=== PATIENT | male | born 1960 | race Caucasian/White ===

== ENCOUNTER 2017-06-29 15:46 | Inpatient (IN) | payer BC ==
[2017-06-29 17:41] LABS: #Basophils 0.1 thou/uL (0.0-0.2); #Eosinphils 0.1 thou/uL (0.0-0.7); #Lymphocytes 2.9 thou/uL (1.20-3.40); #Monocytes 0.7 thou/uL (0.11-0.59); %Basophils 0.7 % (0.0-1.0); %Eosinophils 0.8 % (0.0-10.0); %Lymphocytes 22.8 % (21.0-51.0); %Monocytes 5.4 % (0.0-10.0); %Neutrophils 70.3 % (42.0-75.0); Mean Corpuscular Hemoglobin 31.5 pg (27.0-31.0); Mean Corpuscular Volume 89.9 fl (80.0-94.0); Mean Platelet Volume 7.8 fL (7.4-10.4); Platelet Count 209 thou/uL (130-400); RBC Distribution Width 11.8 % (11.5-14.5); Red Blood Cell (RBC) Count 5.07 mill/uL (4.70-6.10); White Blood Cell (WBC) Count 12.8 thou/uL (4.8-10.8)
[2017-06-29 17:58] LABS: ALT (SGPT) 24 U/L (8-55); AST (SGOT) 26 U/L (5-34); Albumin 4.2 g/dL (3.5-5.0); Alkaline Phosphatase 86 U/L (40-150); Anion Gap 15 mmol/L (10-20); BUN (Urea Nitrogen) 11 mg/dL (8.4-25.7); Bilirubin, Total 1.3 mg/dL (0.2-1.2); Calc. Creatinine Clearance 0 mL/min (70-130); Calcium 9.5 mg/dL (7.8-10.44); Carbon Dioxide 21 mmol/L (22-29); Chloride 99 mmol/L (98-107); Estimated GFR-MDRD 89; Globulin 3.4 g/dL (2.4-3.5); Glucose 247 mg/dL (70-105); Protein, Total 7.6 g/dL (6.0-8.3); Sodium 131 mmol/L (136-145); Troponin I Less than 0.010 ng/mL (< 0.028)
--- NOTE | 2017-06-29 18:22 | HP ---
DATE OF CONSULTATION: 06/29/2017 CHIEF COMPLAINT: Slurred speech and weakness of the left arm. HISTORY OF PRESENT ILLNESS: This is a 56-year-old morbidly obese white male with a known history of type 2 diabetes mellitus and hypertension but is not on medications for the past 2-3 years since his primary care physician 3 years ago. He initially lost his insurance and then for that reason he did not go back to seek another doctor, but he got his job 2 years ago, but he did not bother to see k medical attention. Since yesterday, he was feeling weak when he went to the work and he came back home, was weak and not feeling well and he slept early, and he woke up in the morning and was trying to go to work, was not feeling well and noticed that his left arm was weak and he was unable to write things legibly. His also noticed that when he tried to put his wallet in the draw, it just fel l off the table and he could not reach the table. He had worsening slurred speech started this [facility]. He went to [facility] from where he had a CT of the head this morning, which was showing a sub acute infarct on the right MCA, so the patient was transferred here without giving any aspirin and th e patient was seen here at around 5:30 p.m. He had persistent symptoms slightly improving, but he ho d persistent slurred speech and the persistent weakness of the left upper arm. The patient also ment ioned that he had ataxic gait and he was unable to walk in a straight line and was actually leaning t o the left while walking, brushing his shoulder to the door. He denies having any chest pain, no miles sea, no vomiting, no diarrhea, no constipation. He does have some low vision on his right eye, but danny garcia says it is not new and has been there for a couple of months. He never went to a doctor get it james cked out. PAST MEDICAL HISTORY: 1. Type 2 diabetes mellitus. 2. Hypertension. 3. Hyperlipidemia. PAST SURGICAL HISTORY: The patient had an abdominal surgery in the past for diverticular abscess and part of the intestine was removed according to him. SOCIAL HISTORY: The patient is a not a known smoker. No history of alcohol. No history of illicit drug use. 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 FAMILY HISTORY: The patient has significant family history of coronary artery disease. His mother d ied with a massive heart attack at age of 70. Father had esophageal cancer, who was exposed to asbes tos. ALLERGIES: No known drug allergies. HOME MEDICATIONS: The patient is not on any home medications. REVIEW OF SYSTEMS: All 12 systems are reviewed with the patient thoroughly and found to be negative at this time. Systems reviewed HEENT, CVS, respiratory, GI, , musculoskeletal, and HEAVY LINE TECHNICIAN. All syste ms are reviewed and found to be negative as described in the HPI. Constitutional: Weight loss or gain, sense of well-being, ability to conduct usual activities, exerc ise tolerance. Skin/Breast: Rash, itching, changes in hair growth or loss, nail changes, breast lumps, tenderness, swelling, nipple discharge. Eyes: Vision, double vision, tearing, blind spots, pain. ENT/Mouth: Headaches (location, time of onset, duration, precipitating factors), vertigo, lightheadedness, injury. Vision, double vision, tearing, blind spots, pain, nose b leeding, colds, obstruction, discharge, dental difficulties, gingival bleeding, dentures, neck stiffn ess, pain, tenderness, masses in thyroid or other areas Cardiovascular: Precordial pain, substernal distress, palpitations, syncope, dyspnea on exertion, or thopnea, nocturnal paroxysmal dyspnea, edema, cyanosis, hypertension, heart murmurs, varicosities, ph lebitis, claudication. Respiratory: Pain, shortness of breath, wheezing, stridor, cough, hemoptysis, fever or night sweats Gastrointestinal: Poor appetite, dysphagia, indigestion, abdominal pain, heartburn, eructation, naus ea, vomiting, hematemesis, jaundice, constipation, or diarrhea, abnormal stools (emily-colored, tarry, bloody, greasy, foul smelling), flatulence, hemorrhoids, recent changes in bowel habits. Genitourinary: Urgency, frequency, dysuria, nocturia, hematuria, polyuria, oliguria, unusual (or lenin nge in) color of urine, stones, hesitancy, change in size of stream, dribbling, acute retention or in continence, libido, potency. Musculoskeletal: Pain, swelling, redness or heat of muscles or joints, limitation, of motion, muscular weakness, atrophy, cramps. Neurologic/Psychiatric: Convulsions, paralyses, tremor, incoordination, parasthesias, difficulties w ith memory of speech, sensory or motor disturbances, or muscular coordination (ataxia, tremor), emoti onal problems, anxiety, depression, previous psychiatric care, unusual perceptions, hallucinations. Allergy/Immunologic: Skin rash, anemia, bleeding tendency, polydipsia, polyuria, intolerance to heat or cold. PHYSICAL EXAMINATION: VITAL SIGNS: Blood pressures are 135/97, heart rate is 88, respiration is 18, saturation is 98%. GENERAL: The patient is morbidly obese. He is alert and oriented, does not appear to be in acute di stress. HEENT: Atraumatic, normocephalic. PERRLA. Extraocular movements were intact. Oral mucosa is pink and moist. CARDIOVASCULAR: S1, S2 normal. No murmurs, rubs or gallops. LUNGS: Bilateral air entry was equal. No wheezing, no crackles. ABDOMEN: Soft and nontender. No guarding. No rebound tenderness. Bowel sounds normal. MUSCULOSKELETAL: No calf tenderness. No pedal edema. No joint tenderness. No joint swelling. NEUROLOGIC: Cranial nerve examination was done. The patient has a left upper motor neuron symptoms with left-sided palsy and has a significant weakness on his left upper extremity compared to the righ t upper extremity. 3/5 on the left side compared to the right side. The patient has equal strength in both the lower extremities. Sensory is normal in all over the body. The patient has a normal gag reflex and there is no tongue deviation was noted. LABORATORY DATA: 1. WBC is 12.8, hemoglobin is 16.0, hematocrit is 45.0. 2. CMP was ordered but is pending at this time. 3. CT of the head was done at [facility], which was showing evidence of a right-sided MCA, which more likely more of a subacute type. ASSESSMENT AND PLAN: 1. Acute right-sided middle cerebral artery. 2. Type 2 diabetes mellitus, not on medications. 3. Hypertension. 4. Hyperlipidemia. PLAN: 1. Plan is to admit this patient and closely monitor this patient with neuro checks every 4 hours. We will keep the patient n.p.o. and do a swallow study in the morning with speech. 2. We will do an evaluation of stroke with MRI of the brain and will do a bilateral carotid ultrasou nd and 2D echo to look for any evidence of thromboembolism. We will consult Neurology in the morning . 3. To cover the core measures. The patient has reached ER more than 3 hours after the first symptom s of the stroke. So, hence TPA was not given. The patient was started on aspirin as soon as he reac hed this ER and we will check the lipid profile in the morning. The patient is also started on atorv astatin 40 mg p.o. daily. 4. We will do a permissive hypertension. We will allow elevated blood pressures and treat blood pre ssure with more than 180. 5. Type 2 diabetes mellitus. We will check for the hemoglobin A1c to look for blood sugar control a nd we will start the patient on sliding scale insulin at this time and long-acting Levemir based on h is blood sugars. 6. Chronic DVT prophylaxis with Lovenox. I spent 70 minutes of this patient.
[2017-06-29 18:37] LABS: Hemoglobin A1c 9.6 % (4.0-6.0)
[2017-06-29] MEDS ORDERED: Acetaminophen 325 MG TAB ONE (21:50)
[2017-06-29] MEDS ORDERED: Ondansetron HCl/PF 4 MG/2 ML Vial IVP PRN ×2 (22:17→22:51)
[2017-06-29] MEDS ORDERED: Ondansetron ODT 4 MG TAB SL PRN (22:17)
[2017-06-29] MEDS ORDERED: Acetaminophen 325 MG TAB PO PRN (22:17)
[2017-06-29 22:36] VITALS: BMI 41.3
[2017-06-29] MEDS ORDERED: HYDROcodone/Acetaminophen 5/325 mg Tablet PO PRN (22:51)
[2017-06-29] MEDS ORDERED: hydrALAZINE 20 MG/ML VIAL SLOW IVP PRN (22:51)
[2017-06-29] MEDS ORDERED: Ondansetron ODT 4 MG TAB PO PRN (22:51)
[2017-06-29 23:37] LABS: Troponin I 0.015 ng/mL (< 0.028)
--- NOTE | 2017-06-29 23:55 | ULT ---
CAROTID ARTERIAL DOPPLER ULTRASOUND 06/29/17 COMPARISON: None. HISTORY: Left sided weakness, dizziness. TECHNIQUE: Multiplanar albrecht scale sonographic imaging of the arterial structures of the neck obtained with color flow and spectral analysis. FINDINGS: Antegrade blood flow and normal arterial waveforms are documented within the carotid and vertebral sy stem bilaterally. VESSELS PSV (cm/s) EDV (cm/s) Right CCA 75 18 Right ICA 41 14 Right ECA 62 11 Left CCA 107 26 Left ICA 56 22 Left ECA 78 18 ICA/CCA ratio is 0.6 on the right and 0.5 on the left. IMPRESSION: No hemodynamically significant stenosis on the basis of sonographic velocity criteria. POS: CRISTAL
[2017-06-30 05:04] LABS: #Basophils 0.1 thou/uL (0.0-0.2); #Eosinphils 0.2 thou/uL (0.0-0.7); #Lymphocytes 3.3 thou/uL (1.20-3.40); #Monocytes 0.9 thou/uL (0.11-0.59); #Neutrophils 7.3 thou/uL (1.40-6.50); %Basophils 0.6 % (0.0-1.0); %Eosinophils 1.9 % (0.0-10.0); %Lymphocytes 28.1 % (21.0-51.0); %Monocytes 7.8 % (0.0-10.0); %Neutrophils 61.7 % (42.0-75.0); Hemoglobin 15.3 g/dL (14.0-18.0); Mean Corpuscular Hemoglobin 31.3 pg (27.0-31.0); Mean Corpuscular Volume 89.7 fl (80.0-94.0); Mean Platelet Volume 7.9 fL (7.4-10.4); Platelet Count 205 thou/uL (130-400); RBC Distribution Width 11.7 % (11.5-14.5); White Blood Cell (WBC) Count 11.8 thou/uL (4.8-10.8)
[2017-06-30 05:16] LABS: Anion Gap 13 mmol/L (10-20); BUN (Urea Nitrogen) 13 mg/dL (8.4-25.7); Calc. Creatinine Clearance 151 mL/min (70-130); Calcium 9.5 mg/dL (7.8-10.44); Carbon Dioxide 26 mmol/L (22-29); Cardiac Risk 5.5 (Less than 4.5); Chloride 98 mmol/L (98-107); Cholesterol 236 mg/dl (< 200 Desired); Estimated GFR-MDRD Greater than 90; Glucose 242 mg/dL (70-105); HDL Cholesterol 43 mg/dL (>60 Neg Risk); LDL Cholesterol, Calculated 155 mg/dL; Potassium 3.9 mmol/L (3.5-5.1); Sodium 133 mmol/L (136-145); Triglycerides 188 mg/dL (Less than 150)
[2017-06-30] MEDS: Enoxaparin Sodium 40 MG/0.4 ML SYRINGE SC SCH (08:33)
[2017-06-30] MEDS: Famotidine/PF 20 mg/2ml Vial SLOW IVP SCH ×2 (08:33→20:31)
[2017-06-30] MEDS ORDERED: FLU VACC QS2017-18 36 mo. & older 0.5 ML SYRINGE IM ONE (09:00)
[2017-06-30] MEDS ORDERED: Dextrose 5% in Water 1,000 ML IV PRN (09:07)
[2017-06-30] MEDS ORDERED: Dextrose 50% Abboject 50 ML SYRINGE SLOW IVP PRN (09:07)
[2017-06-30] MEDS: Aspirin 81 mg Enteric Coated Tablet PO SCH (10:17)
[2017-06-30] MEDS: HumaLOG 300 UNITS/3 ML VIAL SC PRN ×2 (11:31→17:12)
--- NOTE | 2017-06-30 13:08 | MRI ---
BRAIN MRI WITHOUT CONTRAST: Date: 06/30/17 HISTORY: Left-sided weakness, starting yesterday. COMPARISON: None. TECHNIQUE: Brain MRI is performed without intravenous Gadolinium administration. Multisequential, multiplanar im aging is performed. FINDINGS: No hemorrhage on the axial gradient echo sequence. Calvarium has a normal T1 marrow signal intensity. Midline brain parenchymal structures are unremarka ble. Brain volume is less than expected for patient's age. Cortical albrecht-white matter differentiation is p reserved. No evidence of hydrocephalus. There is T2 and FLAIR white matter hyperintensity involving the right cerebral white matter tract. Th ere is associated restricted diffusion, compatible with an acute infarction. No additional areas of i nfarction are appreciated. Adequate aeration of the sinuses and mastoid air cells. IMPRESSION: Right cerebral white matter infarct, involving the corpus striatum. Correlate with patient's symptoms . POS: OFF
[2017-06-30] MEDS: metFORMIN 500 MG TAB PO SCH (17:16)
--- NOTE | 2017-06-30 18:04 | CON ---
DATE OF CONSULTATION: 06/30/2017 REFERRING PHYSICIAN: Hospitalist service IMPRESSION: 1. Right deep hemispheric stroke with resultant left mild paresis. 2. Hypertension. 3. Diabetes. 4. Hyperlipidemia. PLAN: 1. Aspirin 81 mg per day. 2. Titrate a statin to address his hyperlipidemia. 3. Echocardiogram. 4. Outpatient physical therapy program. HISTORY OF PRESENT ILLNESS: Mr. Elise is a 56-year-old man with the above noted medical problems. Franky garcia presented with left-sided weakness 2 days ago. He has never had anything like this in the past christine t had not affected his speech or swallowing. Denied any headache, nausea, vomiting, vertigo, double vision, or blurred vision associated with it. His MRI of the brain reveals an area of acute infarcti on in the external capsule and right central periventricular region as carotid Doppler did not show a ny stenosis. Echocardiogram is pending. His lab work showed a lipid panel with a poor ratio of 5.2. His symptoms have improved somewhat since onset. PAST MEDICAL HISTORY: Hypertension, diabetes. FAMILY HISTORY: Noncontributory. SOCIAL HISTORY: No tobacco or alcohol use. ALLERGIES: None reported. REVIEW OF SYSTEMS: Otherwise negative. PHYSICAL EXAMINATION: VITAL SIGNS: Stable. He is afebrile. HEENT: Pupils are equal and reactive. Conjunctivae clear. Oropharynx is clear. NECK: Supple. EXTREMITIES: No cyanosis, clubbing, or edema. NEUROLOGIC: He is alert and cooperative. Speech is fluent and clear. Cranial nerves showed a subtl e left nasolabial fold flattening. Motor exam showed antigravity strength in the left arm and leg wi th diminished fine motor control in the left hand. Sensation was intact to light touch. Reflexes sh owed an upgoing toe on the left. He can walk reasonably independently. EKG showed normal sinus rhythm. SUMMARY: This is a middle-aged man with risk factors for small vessel disease. He is suffering an a cute stroke. He was not on aspirin or statin prior to the event. Agree with your treatment.
[2017-06-30] MEDS: Atorvastatin Calcium 40 MG TAB PO SCH (20:31)
[2017-07-01] MEDS: metFORMIN 500 MG TAB PO SCH ×2 (09:00→16:13)
[2017-07-01] MEDS: Insulin Detemir 100 UNITS/ML 20 UNITS in Admixture Fee 1 EACH SC SCH (09:00)
[2017-07-01] MEDS: Aspirin 81 mg Enteric Coated Tablet PO SCH (09:00)
[2017-07-01] MEDS: Famotidine/PF 20 mg/2ml Vial SLOW IVP SCH ×2 (09:00→22:03)
[2017-07-01] MEDS: Enoxaparin Sodium 40 MG/0.4 ML SYRINGE SC SCH (09:00)
[2017-07-01] MEDS: HumaLOG 300 UNITS/3 ML VIAL SC PRN ×2 (12:01→16:53)
--- NOTE | 2017-07-01 14:20 | PDOC.PN ---
- Subjective Encounter Start Date: 06/30/17 Encounter Start Time: 13:00 Patient is seen today, alert and oriented. Discussed with , pt has soime improvemnt in his speech, has persitant gait deficits. - Objective Resuscitation Status: Resuscitation Status FULL:Full Resuscitation MAR Reviewed: Yes Vital Signs & Weight: Vital Signs (12 hours) Temp Pulse Pulse Pulse Resp BP BP 07/01/17 11:53 98.1 F 80 20 07/01/17 09:30 84 76 165/86 H 165/86 H 07/01/17 07:53 97.5 F L 94 20 07/01/17 07:40 98.0 F 80 18 07/01/17 04:00 98.0 F 80 18 BP Pulse Ox 07/01/17 11:53 128/79 96 07/01/17 09:30 07/01/17 07:53 166/90 H 98 07/01/17 07:40 98 07/01/17 04:00 157/85 H 98 Weight Weight 248 lb 1 oz I&O: 06/30/17 07/01/17 07/02/17 06:59 06:59 06:59 Intake Total 600 Balance 600 Result Diagrams: 06/30/17 04:26 06/30/17 04:26 Additional Labs: Accuchecks 07/01/17 07/01/17 06/30/17 11:04 06:07 20:25 POC Glucose 210 H 215 H 217 H 06/30/17 16:56 POC Glucose 197 H Phys Exam - Physical Examination HEENT: PERRLA, moist MMs Neck: no nodes, no JVD Respiratory: no wheezing, no rales Cardiovascular: RRR, no significant murmur Gastrointestinal: soft, non-tender Musculoskeletal: no edema, pulses present Neurological: non-focal, normal sensation Dx/Plan (1) Acute right arterial ischemic stroke, middle cerebral artery (MCA) Code(s): I63.511 - CEREB INFRC D/T UNSP OCCLS OR STENOS OF RIGHT MID CEREB ART Status: Acute Comment: Patient is seen by Neuirology continue with Aspirin, STatin, Will evalaute for Rehab. (2) Hyperglycemia due to type 2 diabetes mellitus Code(s): E11.65 - TYPE 2 DIABETES MELLITUS WITH HYPERGLYCEMIA Status: Acute Comment: PT is non compliant, responding well to levmir, will do Metformin as outpairtent. (3) Hypertension Code(s): I10 - ESSENTIAL (PRIMARY) HYPERTENSION Status: Acute Comment: PT will be clsoley monitored for permissive HTN. (4) Hyperlipidemia Code(s): E78.5 - HYPERLIPIDEMIA, UNSPECIFIED Status: Acute Comment: continue on Atorvastatin goal LDL<100 - Plan cont current plan of care, plan discussed w/ family, PT/OT, addiction social worker, speech therapy, DVT proph w/lovenox * . - Discharge Day Encounter end time: 13:35 Review of Systems - Review of Systems Constitutional: fever, chills Eyes: Pain, Vision Change Respiratory: Cough, Dry, Shortness of Breath Cardiovascular: palpitations, edema, light headedness Gastrointestinal: Nausea, Vomiting, Abdominal Pain Musculoskeletal: Neck Pain, Shoulder Pain Skin: Rash, Lesions Neurological: Weakness, Numbness - Medications/Allergies Allergies/Adverse Reactions: Allergies Allergy/AdvReac Type Severity Reaction Status Date / Time No Known Drug Allergies Allergy Verified 07/01/17 02:49 Medications: Current Medications Acetaminophen (Tylenol) 650 mg PO Q4H PRN PRN Reason: Headache/Fever or Pain Hydrocodone Bitart/Acetaminophen ([place] 5/325) 1 tab PO Q4H PRN PRN Reason: Moderate Pain (4-6) Aspirin (Ecotrin) 81 mg PO DAILY [facility] Last Admin: 07/01/17 09:00 Dose: 81 mg Atorvastatin Calcium (Lipitor) 40 mg PO HS [facility] Last Admin: 06/30/17 20:31 Dose: 40 mg Dextrose/Water (Dextrose 50%) 25 gm SLOW IVP PRN PRN PRN Reason: Hypoglycemia Enoxaparin Sodium (Lovenox) 40 mg SC 0900 [facility] Last Admin: 07/01/17 09:00 Dose: 40 mg Famotidine (Pepcid) 20 mg SLOW IVP Q12HR [facility] Last Admin: 07/01/17 09:00 Dose: 20 mg Glucagon (Glucagon) 1 mg IM PRN PRN PRN Reason: Hypoglycemia Hydralazine HCl (Apresoline) 10 mg SLOW IVP Q4H PRN PRN Reason: BP > 220/110 Dextrose/Water (D5w) 1,000 mls @ 0 mls/hr IV .Q0M PRN; As Directed PRN Reason: Hypoglycemia Insulin Detemir 20 units/ (Miscellaneous Medication) 0.2 mls @ 0 mls/hr SC QAM [facility] Last Admin: 07/01/17 09:00 Dose: 0.2 mls Insulin Human Lispro (Humalog) 0 units SC .MODERATE SLIDING SC PRN PRN Reason: Moderate Correctional Scale Last Admin: 07/01/17 12:01 Dose: 4 unit Metformin HCl (Glucophage) 500 mg PO BID-[facility] Last Admin: 07/01/17 09:00 Dose: 500 mg Ondansetron HCl (Zofran Odt) 4 mg PO Q6H PRN PRN Reason: Nausea/Vomiting Ondansetron HCl (Zofran) 4 mg IVP Q6H PRN PRN Reason: Nausea/Vomiting Sodium Chloride (Flush - Normal Saline) 10 ml IVF Q12HR [facility] Last Admin: 07/01/17 09:07 Dose: 10 ml Sodium Chloride (Flush - Normal Saline) 10 ml IVF PRN PRN PRN Reason: Saline Flush
--- NOTE | 2017-07-01 15:24 | PDOC.PN ---
- Subjective Encounter Start Date: 07/01/17 Encounter Start Time: 14:30 Patient is seen today, alert and oriented, He continuos to have Weakness of his left upper ARM AND Lower extremity. - Objective Resuscitation Status: Resuscitation Status FULL:Full Resuscitation MAR Reviewed: Yes Vital Signs & Weight: Vital Signs (12 hours) Temp Pulse Pulse Pulse Resp BP BP 07/01/17 11:53 98.1 F 80 20 07/01/17 09:30 84 76 165/86 H 165/86 H 07/01/17 07:53 97.5 F L 94 20 07/01/17 07:40 98.0 F 80 18 07/01/17 04:00 98.0 F 80 18 BP Pulse Ox 07/01/17 11:53 128/79 96 07/01/17 09:30 07/01/17 07:53 166/90 H 98 07/01/17 07:40 98 07/01/17 04:00 157/85 H 98 Weight Weight 248 lb 1 oz I&O: 06/30/17 07/01/17 07/02/17 06:59 06:59 06:59 Intake Total 600 Balance 600 Result Diagrams: 06/30/17 04:26 06/30/17 04:26 Additional Labs: Accuchecks 07/01/17 07/01/17 06/30/17 11:04 06:07 20:25 POC Glucose 210 H 215 H 217 H 06/30/17 16:56 POC Glucose 197 H Phys Exam - Physical Examination HEENT: PERRLA, moist MMs Neck: no nodes, no JVD Respiratory: no wheezing, no rales Cardiovascular: RRR, no significant murmur Gastrointestinal: soft, non-tender Musculoskeletal: no edema, pulses present Neurological: non-focal, normal sensation Lymphatic: no nodes Psychiatric: normal affect, A&O x 3 Skin: no rash, normal turgor Dx/Plan (1) Acute right arterial ischemic stroke, middle cerebral artery (MCA) Code(s): I63.511 - CEREB INFRC D/T UNSP OCCLS OR STENOS OF RIGHT MID CEREB ART Status: Acute Comment: Patient is seen by Neuirology continue with Aspirin, STatin, Will evalaute for inpatient Rehab. (2) Hyperglycemia due to type 2 diabetes mellitus Code(s): E11.65 - TYPE 2 DIABETES MELLITUS WITH HYPERGLYCEMIA Status: Acute Comment: PT is non compliant, responding well to levmir, will do Metformin as outpairtent. (3) Hypertension Code(s): I10 - ESSENTIAL (PRIMARY) HYPERTENSION Status: Acute Comment: PT will be clsoley monitored for permissive HTN. (4) Hyperlipidemia Code(s): E78.5 - HYPERLIPIDEMIA, UNSPECIFIED Status: Acute Comment: continue on Atorvastatin goal LDL<100 - Plan cont current plan of care, plan discussed w/ family, PT/OT, social staff worker, speech therapy, DVT proph w/lovenox, DVT proph w/SCDs * . - Discharge Day Encounter end time: 15:15 Review of Systems - Review of Systems Constitutional: negative: sweats, weakness, malaise, other Eyes: negative: Pain, Vision Change, Conjunctivae Inflammation, Eyelid Inflammation, Redness, Other ENT: negative: Ear Pain, Ear Discharge, Nose Pain, Nose Discharge, Nose Congestion, Mouth Pain, Mouth Swelling, Throat Pain, Throat Swelling, Other Respiratory: negative: Cough, Dry, Shortness of Breath, Hemoptysis, SOB with Excertion, Pleuritic Pain, Sputum, Wheezing Cardiovascular: negative: chest pain, palpitations, orthopnea, paroxysmal nocturnal dyspnea, edema, light headedness, other Gastrointestinal: negative: Nausea, Vomiting, Abdominal Pain, Diarrhea, Constipation, Melena, Hematochezia, Other Genitourinary: negative: Dysuria, Frequency, Incontinence, Hematuria, Retention , Other Musculoskeletal: negative: Neck Pain, Shoulder Pain, Arm Pain, Back Pain, Hand Pain, Leg Pain, Foot Pain, Other Skin: negative: Rash, Lesions, Haris, Bruising, Other Neurological: Weakness, Incoordination, Change in Speech - Medications/Allergies Allergies/Adverse Reactions: Allergies Allergy/AdvReac Type Severity Reaction Status Date / Time No Known Drug Allergies Allergy Verified 07/01/17 02:49 Medications: Current Medications Acetaminophen (Tylenol) 650 mg PO Q4H PRN PRN Reason: Headache/Fever or Pain Hydrocodone Bitart/Acetaminophen ([place] 5/325) 1 tab PO Q4H PRN PRN Reason: Moderate Pain (4-6) Aspirin (Ecotrin) 81 mg PO DAILY [facility] Last Admin: 07/01/17 09:00 Dose: 81 mg Atorvastatin Calcium (Lipitor) 40 mg PO HS [facility] Last Admin: 06/30/17 20:31 Dose: 40 mg Dextrose/Water (Dextrose 50%) 25 gm SLOW IVP PRN PRN PRN Reason: Hypoglycemia Enoxaparin Sodium (Lovenox) 40 mg SC 0900 [facility] Last Admin: 07/01/17 09:00 Dose: 40 mg Famotidine (Pepcid) 20 mg SLOW IVP Q12HR [facility] Last Admin: 07/01/17 09:00 Dose: 20 mg Glucagon (Glucagon) 1 mg IM PRN PRN PRN Reason: Hypoglycemia Hydralazine HCl (Apresoline) 10 mg SLOW IVP Q4H PRN PRN Reason: BP > 220/110 Dextrose/Water (D5w) 1,000 mls @ 0 mls/hr IV .Q0M PRN; As Directed PRN Reason: Hypoglycemia Insulin Detemir 20 units/ (Miscellaneous Medication) 0.2 mls @ 0 mls/hr SC QAM [facility] Last Admin: 07/01/17 09:00 Dose: 0.2 mls Insulin Human Lispro (Humalog) 0 units SC .MODERATE SLIDING SC PRN PRN Reason: Moderate Correctional Scale Last Admin: 07/01/17 12:01 Dose: 4 unit Metformin HCl (Glucophage) 500 mg PO BID-[facility] Last Admin: 07/01/17 09:00 Dose: 500 mg Ondansetron HCl (Zofran Odt) 4 mg PO Q6H PRN PRN Reason: Nausea/Vomiting Ondansetron HCl (Zofran) 4 mg IVP Q6H PRN PRN Reason: Nausea/Vomiting Sodium Chloride (Flush - Normal Saline) 10 ml IVF Q12HR [facility] Last Admin: 07/01/17 09:07 Dose: 10 ml Sodium Chloride (Flush - Normal Saline) 10 ml IVF PRN PRN PRN Reason: Saline Flush
[2017-07-01] MEDS: Atorvastatin Calcium 40 MG TAB PO SCH (21:58)
[2017-07-02] MEDS: HumaLOG 300 UNITS/3 ML VIAL SC PRN ×3 (07:23→17:31)
[2017-07-02] MEDS: Insulin Detemir 100 UNITS/ML 20 UNITS in Admixture Fee 1 EACH SC SCH (09:51)
[2017-07-02] MEDS: Famotidine/PF 20 mg/2ml Vial SLOW IVP SCH ×2 (09:52→22:00)
[2017-07-02] MEDS: metFORMIN 500 MG TAB PO SCH ×2 (09:52→17:31)
[2017-07-02] MEDS: Aspirin 81 mg Enteric Coated Tablet PO SCH (09:52)
[2017-07-02] MEDS: Enoxaparin Sodium 40 MG/0.4 ML SYRINGE SC SCH (09:52)
--- NOTE | 2017-07-02 13:59 | PDOC.PN ---
- Subjective Encounter Start Date: 07/02/17 Encounter Start Time: 10:30 Patient is seen today, he says he feels very weak today, No change in his emdications. Pt is waiting on insurance auth to go to Inpatient Rehab - Objective Resuscitation Status: Resuscitation Status FULL:Full Resuscitation MAR Reviewed: Yes Vital Signs & Weight: Vital Signs (12 hours) Temp Pulse Resp BP BP Pulse Ox 07/02/17 11:40 97.9 F 86 18 141/99 H 98 07/02/17 08:05 97.9 F 86 18 07/02/17 07:35 98.2 F 82 18 157/91 H 97 07/02/17 03:35 97.9 F 84 16 136/82 99 Weight Weight 248 lb 1 oz I&O: 07/01/17 07/02/17 07/03/17 06:59 06:59 06:59 Intake Total 600 540 Balance 600 540 Result Diagrams: 06/30/17 04:26 06/30/17 04:26 Additional Labs: Accuchecks 07/02/17 07/02/17 07/01/17 10:50 06:08 21:59 POC Glucose 172 H 162 H 149 H 07/01/17 16:46 POC Glucose 209 H Radiology Reviewed by me: Yes Phys Exam - Physical Examination HEENT: PERRLA, moist MMs Neck: no nodes, no JVD Respiratory: no rales, wheezing present Cardiovascular: RRR, no significant murmur Gastrointestinal: soft, non-tender Musculoskeletal: pulses present, edema present Neurological: non-focal, normal sensation Lymphatic: no nodes Psychiatric: normal affect, A&O x 3 Dx/Plan (1) Acute right arterial ischemic stroke, middle cerebral artery (MCA) Code(s): I63.511 - CEREB INFRC D/T UNSP OCCLS OR STENOS OF RIGHT MID CEREB ART Status: Acute Comment: Patient is seen by Neuirology continue with Aspirin, STatin, Need inpatient Rehab.waiting on insurance Auth. (2) Hyperglycemia due to type 2 diabetes mellitus Code(s): E11.65 - TYPE 2 DIABETES MELLITUS WITH HYPERGLYCEMIA Status: Acute Comment: PT is non compliant, responding well to levmir, started metformin, will start GLipizide 5mg Po daily. (3) Hypertension Code(s): I10 - ESSENTIAL (PRIMARY) HYPERTENSION Status: Acute Comment: PT will be clsoley monitored for permissive HTN. (4) Hyperlipidemia Code(s): E78.5 - HYPERLIPIDEMIA, UNSPECIFIED Status: Acute Comment: continue on Atorvastatin goal LDL<100 - Plan cont current plan of care, plan discussed w/ family, PT/OT, social science professor, speech therapy, incentive spirometry, DVT proph w/lovenox * . - Discharge Day Encounter end time: 11:05 Review of Systems - Review of Systems Constitutional: negative: fever, chills, sweats, weakness, malaise, other Eyes: negative: Pain, Vision Change, Conjunctivae Inflammation, Eyelid Inflammation, Redness, Other ENT: negative: Ear Pain, Ear Discharge, Nose Pain, Nose Discharge, Nose Congestion, Mouth Pain, Mouth Swelling, Throat Pain, Throat Swelling, Other Respiratory: negative: Cough, Dry, Shortness of Breath, Hemoptysis, SOB with Excertion, Pleuritic Pain, Sputum, Wheezing Cardiovascular: negative: chest pain, palpitations, orthopnea, paroxysmal nocturnal dyspnea, edema, light headedness, other Gastrointestinal: negative: Nausea, Vomiting, Abdominal Pain, Diarrhea, Constipation, Melena, Hematochezia, Other Genitourinary: negative: Dysuria, Frequency, Incontinence, Hematuria, Retention , Other Musculoskeletal: negative: Neck Pain, Shoulder Pain, Arm Pain, Back Pain, Hand Pain, Leg Pain, Foot Pain, Other Neurological: Weakness, Incoordination - Medications/Allergies Allergies/Adverse Reactions: Allergies Allergy/AdvReac Type Severity Reaction Status Date / Time No Known Drug Allergies Allergy Verified 07/01/17 02:49 Medications: Current Medications Acetaminophen (Tylenol) 650 mg PO Q4H PRN PRN Reason: Headache/Fever or Pain Hydrocodone Bitart/Acetaminophen ([place] 5/325) 1 tab PO Q4H PRN PRN Reason: Moderate Pain (4-6) Aspirin (Ecotrin) 81 mg PO DAILY [facility] Last Admin: 07/02/17 09:52 Dose: 81 mg Atorvastatin Calcium (Lipitor) 40 mg PO HS [facility] Last Admin: 07/01/17 21:58 Dose: 40 mg Dextrose/Water (Dextrose 50%) 25 gm SLOW IVP PRN PRN PRN Reason: Hypoglycemia Enoxaparin Sodium (Lovenox) 40 mg SC 0900 [facility] Last Admin: 07/02/17 09:52 Dose: 40 mg Famotidine (Pepcid) 20 mg SLOW IVP Q12HR [facility] Last Admin: 07/02/17 09:52 Dose: 20 mg Glipizide (Glucotrol Xl) 5 mg PO QA-[facility] Glucagon (Glucagon) 1 mg IM PRN PRN PRN Reason: Hypoglycemia Hydralazine HCl (Apresoline) 10 mg SLOW IVP Q4H PRN PRN Reason: BP > 220/110 Dextrose/Water (D5w) 1,000 mls @ 0 mls/hr IV .Q0M PRN; As Directed PRN Reason: Hypoglycemia Insulin Detemir 20 units/ (Miscellaneous Medication) 0.2 mls @ 0 mls/hr SC [facility] Last Admin: 07/02/17 09:51 Dose: 0.2 mls Insulin Human Lispro (Humalog) 0 units SC .MODERATE SLIDING SC PRN PRN Reason: Moderate Correctional Scale Last Admin: 07/02/17 11:56 Dose: 2 unit Metformin HCl (Glucophage) 500 mg PO BID-[facility] Last Admin: 07/02/17 09:52 Dose: 500 mg Ondansetron HCl (Zofran Odt) 4 mg PO Q6H PRN PRN Reason: Nausea/Vomiting Ondansetron HCl (Zofran) 4 mg IVP Q6H PRN PRN Reason: Nausea/Vomiting Sodium Chloride (Flush - Normal Saline) 10 ml IVF Q12HR [facility] Last Admin: 07/02/17 09:53 Dose: 10 ml Sodium Chloride (Flush - Normal Saline) 10 ml IVF PRN PRN PRN Reason: Saline Flush
[2017-07-02] MEDS: Atorvastatin Calcium 40 MG TAB PO SCH (21:59)
[2017-07-03] MEDS: Acetaminophen 325 MG TAB PO PRN ×2 (00:15→11:08)
[2017-07-03] MEDS: HumaLOG 300 UNITS/3 ML VIAL SC PRN ×2 (05:55→11:07)
[2017-07-03] MEDS: Enoxaparin Sodium 40 MG/0.4 ML SYRINGE SC SCH (09:19)
[2017-07-03] MEDS: Aspirin 81 mg Enteric Coated Tablet PO SCH (09:20)
[2017-07-03] MEDS: Famotidine/PF 20 mg/2ml Vial SLOW IVP SCH (09:20)
[2017-07-03] MEDS: metFORMIN 500 MG TAB PO SCH ×2 (09:20→17:04)
[2017-07-03] MEDS: Insulin Detemir 100 UNITS/ML 20 UNITS in Admixture Fee 1 EACH SC SCH (10:05)
--- NOTE | 2017-07-03 15:11 | PDOC.PN ---
- Subjective Encounter Start Date: 07/03/17 Encounter Start Time: 11:00 Patient is seen today, kajal ortega oritented, his Weaknes sis improving, he said he felt fine walking in the lobby. - Objective Resuscitation Status: Resuscitation Status FULL:Full Resuscitation MAR Reviewed: Yes Vital Signs & Weight: Vital Signs (12 hours) Temp Pulse Resp BP Pulse Ox 07/03/17 11:00 97.6 F 77 18 131/81 97 07/03/17 08:00 97.6 F 77 18 139/83 97 07/03/17 04:00 98.1 F 91 20 147/91 H 96 Weight Weight 248 lb 1 oz I&O: 07/02/17 07/03/17 07/04/17 06:59 06:59 06:59 Intake Total 540 Balance 540 Result Diagrams: 06/30/17 04:26 06/30/17 04:26 Additional Labs: Accuchecks 07/03/17 07/02/17 07/02/17 05:29 20:32 16:56 POC Glucose 163 H 155 H 202 H Radiology Reviewed by me: Yes Dx/Plan (1) Acute right arterial ischemic stroke, middle cerebral artery (MCA) Code(s): I63.511 - CEREB INFRC D/T UNSP OCCLS OR STENOS OF RIGHT MID CEREB ART Status: Acute Comment: Patient is seen by Neuirology continue with Aspirin, STatin, Need inpatient Rehab.waiting on insurance Auth. (2) Hyperglycemia due to type 2 diabetes mellitus Code(s): E11.65 - TYPE 2 DIABETES MELLITUS WITH HYPERGLYCEMIA Status: Acute Comment: PT is non compliant, responding well to levmir, started metformin, will start GLipizide 5mg Po daily. (3) Hypertension Code(s): I10 - ESSENTIAL (PRIMARY) HYPERTENSION Status: Acute Comment: PT will be clsoley monitored for permissive HTN. (4) Hyperlipidemia Code(s): E78.5 - HYPERLIPIDEMIA, UNSPECIFIED Status: Acute Comment: continue on Atorvastatin goal LDL<100 - Plan cont current plan of care, PT/OT, speech therapy, incentive spirometry, out of bed/ambulate, DVT proph w/lovenox * . - Discharge Day Encounter end time: 11:35 Review of Systems - Review of Systems Constitutional: negative: fever, chills, sweats, weakness, malaise, other Eyes: negative: Pain, Vision Change, Conjunctivae Inflammation, Eyelid Inflammation, Redness, Other ENT: negative: Ear Pain, Ear Discharge, Nose Pain, Nose Discharge, Nose Congestion, Mouth Pain, Mouth Swelling, Throat Pain, Throat Swelling, Other Respiratory: negative: Cough, Dry, Shortness of Breath, Hemoptysis, SOB with Excertion, Pleuritic Pain, Sputum, Wheezing Cardiovascular: negative: chest pain, palpitations, orthopnea, paroxysmal nocturnal dyspnea, edema, light headedness, other Gastrointestinal: negative: Nausea, Vomiting, Abdominal Pain, Diarrhea, Constipation, Melena, Hematochezia, Other Musculoskeletal: negative: Neck Pain, Shoulder Pain, Arm Pain, Back Pain, Hand Pain, Leg Pain, Foot Pain, Other Neurological: Weakness. negative: Numbness, Incoordination, Change in Speech, Confusion, Seizures, Other - Medications/Allergies Allergies/Adverse Reactions: Allergies Allergy/AdvReac Type Severity Reaction Status Date / Time No Known Drug Allergies Allergy Verified 07/01/17 02:49 Medications: Current Medications Acetaminophen (Tylenol) 650 mg PO Q4H PRN PRN Reason: Headache/Fever or Pain Last Admin: 07/03/17 11:08 Dose: 650 mg Hydrocodone Bitart/Acetaminophen ([place] 5/325) 1 tab PO Q4H PRN PRN Reason: Moderate Pain (4-6) Aspirin (Ecotrin) 81 mg PO DAILY [facility] Last Admin: 07/03/17 09:20 Dose: 81 mg Atorvastatin Calcium (Lipitor) 40 mg PO HS [facility] Last Admin: 07/02/17 21:59 Dose: 40 mg Dextrose/Water (Dextrose 50%) 25 gm SLOW IVP PRN PRN PRN Reason: Hypoglycemia Enoxaparin Sodium (Lovenox) 40 mg SC 0900 [facility] Last Admin: 07/03/17 09:19 Dose: 40 mg Famotidine (Pepcid) 20 mg SLOW IVP Q12HR [facility] Last Admin: 07/03/17 09:20 Dose: 20 mg Glipizide (Glucotrol Xl) 5 mg PO QAM-[facility] Last Admin: 07/03/17 09:19 Dose: 5 mg Glucagon (Glucagon) 1 mg IM PRN PRN PRN Reason: Hypoglycemia Hydralazine HCl (Apresoline) 10 mg SLOW IVP Q4H PRN PRN Reason: BP > 220/110 Dextrose/Water (D5w) 1,000 mls @ 0 mls/hr IV .Q0M PRN; As Directed PRN Reason: Hypoglycemia Insulin Detemir 20 units/ (Miscellaneous Medication) 0.2 mls @ 0 mls/hr SC QAM [facility] Last Admin: 07/03/17 10:05 Dose: 0.2 mls Insulin Human Lispro (Humalog) 0 units SC .MODERATE SLIDING SC PRN PRN Reason: Moderate Correctional Scale Last Admin: 07/03/17 11:07 Dose: 4 unit Metformin HCl (Glucophage) 500 mg PO BID-[facility] Last Admin: 07/03/17 09:20 Dose: 500 mg Ondansetron HCl (Zofran Odt) 4 mg PO Q6H PRN PRN Reason: Nausea/Vomiting Ondansetron HCl (Zofran) 4 mg IVP Q6H PRN PRN Reason: Nausea/Vomiting Sodium Chloride (Flush - Normal Saline) 10 ml IVF Q12HR [facility] Last Admin: 07/03/17 09:23 Dose: 10 ml Sodium Chloride (Flush - Normal Saline) 10 ml IVF PRN PRN PRN Reason: Saline Flush
[2017-07-03] MEDS: Atorvastatin Calcium 40 MG TAB PO SCH (22:23)
[2017-07-03] MEDS: Famotidine 20 MG TAB PO SCH (22:24)
[2017-07-04] MEDS: metFORMIN 500 MG TAB PO SCH ×2 (09:29→17:08)
[2017-07-04] MEDS: Insulin Detemir 100 UNITS/ML 20 UNITS in Admixture Fee 1 EACH SC SCH (09:29)
[2017-07-04] MEDS: Enoxaparin Sodium 40 MG/0.4 ML SYRINGE SC SCH (09:29)
[2017-07-04] MEDS: Aspirin 81 mg Enteric Coated Tablet PO SCH (09:30)
[2017-07-04] MEDS: Famotidine 20 MG TAB PO SCH ×2 (09:30→21:37)
--- NOTE | 2017-07-04 16:33 | PDOC.PN ---
- Subjective Encounter Start Date: 07/04/17 Encounter Start Time: 09:00 patient is seen today, waiitng on his Insurance Auth. Will continue to Monitor, and Discharge when bed available. - Objective Resuscitation Status: Resuscitation Status FULL:Full Resuscitation MAR Reviewed: Yes Vital Signs & Weight: Vital Signs (12 hours) Temp Pulse Pulse Pulse Resp BP BP 07/04/17 16:00 98.3 F 84 16 07/04/17 13:14 90 80 136/90 163/88 H 07/04/17 12:00 98.3 F 80 18 07/04/17 07:53 98.4 F 84 20 07/04/17 07:50 98.7 F 82 16 BP Pulse Ox 07/04/17 16:00 127/85 96 07/04/17 13:14 07/04/17 12:00 133/91 H 95 07/04/17 07:53 120/81 97 07/04/17 07:50 Weight Weight 248 lb 1 oz I&O: 07/03/17 07/04/17 07/05/17 06:59 06:59 06:59 Intake Total 120 Balance 120 Result Diagrams: 06/30/17 04:26 06/30/17 04:26 Additional Labs: Accuchecks 07/04/17 07/04/17 07/03/17 11:15 05:43 20:46 POC Glucose 127 H 99 122 H 07/03/17 07/03/17 16:40 10:38 POC Glucose 149 H 216 H Phys Exam - Physical Examination HEENT: PERRLA, moist MMs Neck: no nodes, no JVD Respiratory: no wheezing, no rales Cardiovascular: RRR, no significant murmur Gastrointestinal: soft, non-tender Musculoskeletal: no edema, pulses present Neurological: non-focal, normal sensation Lymphatic: no nodes Psychiatric: normal affect, A&O x 3 Dx/Plan (1) Acute right arterial ischemic stroke, middle cerebral artery (MCA) Code(s): I63.511 - CEREB INFRC D/T UNSP OCCLS OR STENOS OF RIGHT MID CEREB ART Status: Acute Comment: Patient is seen by Neuirology continue with Aspirin, STatin, Need inpatient Rehab.waiting on insurance Auth. (2) Hyperglycemia due to type 2 diabetes mellitus Code(s): E11.65 - TYPE 2 DIABETES MELLITUS WITH HYPERGLYCEMIA Status: Acute Comment: PT is non compliant, responding well to levmir, started metformin, will start GLipizide 5mg Po daily. (3) Hypertension Code(s): I10 - ESSENTIAL (PRIMARY) HYPERTENSION Status: Acute Comment: PT will be clsoley monitored for permissive HTN. (4) Hyperlipidemia Code(s): E78.5 - HYPERLIPIDEMIA, UNSPECIFIED Status: Acute Comment: continue on Atorvastatin goal LDL<100 - Plan cont current plan of care, PT/OT, psychosocial rehabilitation counselor, out of bed/ambulate, DVT proph w/lovenox * . - Discharge Day Encounter end time: 09:30 Review of Systems - Review of Systems Eyes: negative: Pain, Vision Change, Conjunctivae Inflammation, Eyelid Inflammation, Redness, Other ENT: negative: Ear Pain, Ear Discharge, Nose Pain, Nose Discharge, Nose Congestion, Mouth Pain, Mouth Swelling, Throat Pain, Throat Swelling, Other Respiratory: negative: Cough, Dry, Shortness of Breath, Hemoptysis, SOB with Excertion, Pleuritic Pain, Sputum, Wheezing Cardiovascular: negative: chest pain, palpitations, orthopnea, paroxysmal nocturnal dyspnea, edema, light headedness, other Gastrointestinal: negative: Nausea, Vomiting, Abdominal Pain, Diarrhea, Constipation, Melena, Hematochezia, Other Genitourinary: negative: Dysuria, Frequency, Incontinence, Hematuria, Retention , Other Musculoskeletal: negative: Neck Pain, Shoulder Pain, Arm Pain, Back Pain, Hand Pain, Leg Pain, Foot Pain, Other Skin: negative: Rash, Lesions, Haris, Bruising, Other Neurological: negative: Weakness, Numbness, Incoordination, Change in Speech, Confusion, Seizures, Other - Medications/Allergies Allergies/Adverse Reactions: Allergies Allergy/AdvReac Type Severity Reaction Status Date / Time No Known Drug Allergies Allergy Verified 07/01/17 02:49 Medications: Current Medications Acetaminophen (Tylenol) 650 mg PO Q4H PRN PRN Reason: Headache/Fever or Pain Last Admin: 07/03/17 11:08 Dose: 650 mg Hydrocodone Bitart/Acetaminophen ([place] 5/325) 1 tab PO Q4H PRN PRN Reason: Moderate Pain (4-6) Aspirin (Ecotrin) 81 mg PO DAILY [facility] Last Admin: 07/04/17 09:30 Dose: 81 mg Atorvastatin Calcium (Lipitor) 40 mg PO HS [facility] Last Admin: 07/03/17 22:23 Dose: 40 mg Dextrose/Water (Dextrose 50%) 25 gm SLOW IVP PRN PRN PRN Reason: Hypoglycemia Enoxaparin Sodium (Lovenox) 40 mg SC 0900 [facility] Last Admin: 07/04/17 09:29 Dose: 40 mg Famotidine (Pepcid) 20 mg PO BID [facility] Last Admin: 07/04/17 09:30 Dose: 20 mg [facility] Last Admin: 07/04/17 09:30 Dose: 5 mg Glucagon (Glucagon) 1 mg IM PRN PRN PRN Reason: Hypoglycemia Hydralazine HCl (Apresoline) 10 mg SLOW IVP Q4H PRN PRN Reason: BP > 220/110 Dextrose/Water (D5w) 1,000 mls @ 0 mls/hr IV .Q0M PRN; As Directed PRN Reason: Hypoglycemia Insulin Detemir 20 units/ (Miscellaneous Medication) 0.2 mls @ 0 mls/hr SC [facility] Last Admin: 07/04/17 09:29 Dose: 0.2 mls Insulin Human Lispro (Humalog) 0 units SC .MODERATE SLIDING SC PRN PRN Reason: Moderate Correctional Scale Last Admin: 07/03/17 11:07 Dose: 4 unit [facility]) [facility] Last Admin: 07/04/17 09:29 Dose: 500 mg Ondansetron HCl (Zofran Odt) 4 mg PO Q6H PRN PRN Reason: Nausea/Vomiting Ondansetron HCl (Zofran) 4 mg IVP Q6H PRN PRN Reason: Nausea/Vomiting Sodium Chloride (Flush - Normal Saline) 10 ml IVF Q12HR [facility] Last Admin: 07/04/17 09:30 Dose: 10 ml Sodium Chloride (Flush - Normal Saline) 10 ml IVF PRN PRN PRN Reason: Saline Flush
[2017-07-04] MEDS: Atorvastatin Calcium 40 MG TAB PO SCH (21:37)
[2017-07-05 08:11] VITALS: BP 143/93; TEMP 97.7
[2017-07-05] MEDS: Famotidine 20 MG TAB PO SCH (09:18)
[2017-07-05] MEDS: metFORMIN 500 MG TAB PO SCH (09:18)
[2017-07-05] MEDS: Enoxaparin Sodium 40 MG/0.4 ML SYRINGE SC SCH (09:18)
--- NOTE | 2017-07-05 09:48 | DIS ---
DISCHARGE DIAGNOSES: 1. Acute right middle cerebral artery stroke. 2. Type 2 diabetes. 3. Hypertension. 4. Hyperlipidemia. 5. Medication noncompliance. 6. Obesity. BRIEF SUMMARY OF HOSPITAL COURSE: A 56-year-old male with a history of type 2 diabetes, hypertension, medication noncompliance, who initially presented with a chief complaint of weakness of the left arm with slurred speech. Please see the initial history and physical for full details surrounding admission. The patient was confirmed to have a right MCA stroke as the etiology for his symptoms. At the time of discharge, he is currently being discharged to [place] for further work with physical therapy, speech therapy, and occupational therapy. The patient was seen by Neurology during this consultation as well and at the time of discharge newly on atorvastatin 40 mg p.o., aspirin 81 mg p.o. along with an antihypertensive and anti-hyperglycemic regimen for secondary risk factor modification. It appears that the patient has been noncompliant over the last 2-3 years since his prior PCP . He has not followed up in regards to his longstanding type 2 diabetes and hypertension. The patient has been initiated on glipizide, metformin, and Levemir for glucose control. The patient has also been demonstrating reasonable blood pressure control with his other risk factors managed. He has not had any hypertension and systolic blood pressure is over 120-130 while on sodium limited diabetic diet on an inpatient basis. Remainder of the patient's medical issues has been stable during hospitalization. CONSULTATIONS: 1. Neurology. 2. Case management 3. Physical therapy. 4. Speech therapy. DISCHARGE MEDICATIONS: Please see the EMR for full listing. Of note, the patient is newly started on a regimen including aspirin 81 mg p.o. daily, atorvastatin 40 mg p.o. at bedtime, glipizide 5 mg p.o. q.a.m., metformin 500 mg p.o. b.i.d., and insulin detemir 20 units q.a.m. Prescriptions for these have been given for the patient. DISCHARGE INSTRUCTIONS AND FOLLOWUP: The patient is asked to follow closely with primary care provider. The patient states that he will be selecting a new PCP after discharge from [place]. The patient has been asked to follow up with Neurology as he was seen by Dr. Earl during this hospitalization. NOTABLE LABORATORY DATA AND IMAGING: On 06/30/2017, MRI of the brain. Impression; right cerebral white matter infarct, involving the corpus striatum. Correlate with patient's symptoms. I have reviewed the above with the patient including his new medications and patient is able to complete teach back. Thank you for asking me to participate in the care of your patient. If any questions or concerns, contact me to [facility]. SMILEY
--- NOTE | 2017-07-23 14:33 | EKG ---
Test Reason : Blood Pressure : / mmHG Vent. Rate : 082 BPM Atrial Rate : 082 BPM P-R Int : 194 ms QRS Dur : 092 ms QT Int : 404 ms P-R-T Axes : 041 027 040 degrees QTc Int : 472 ms Normal sinus rhythm Normal ECG Confirmed by RAVI GODINEZ M.D. ([id number]), magazine editor MATT CHIANG ([id number]) on 07/23/2017 2:32:36 PM Referred By: Confirmed By:RAVI GODINEZ M.D.
== END 2017-07-05 10:02 | disposition swing bed (61) | DRG 65 ==
LOC: ERS 15:46 → ERHOLD 16:55 → 2SE 22:00
PROVIDERS: ADMIT Family Medicine; ATTEND Family Medicine
DX: I63.511 Cerebral infarction due to unspecified occlusion or stenosis of right middle cerebral artery (principal); Z68.41 Body mass index [BMI] 40.0-44.9, adult; E11.65 Type 2 diabetes mellitus with hyperglycemia; G81.94 Hemiplegia, unspecified affecting left nondominant side; E66.01 Morbid (severe) obesity due to excess calories; R47.81 Slurred speech; I10 Essential (primary) hypertension; E78.5 Hyperlipidemia, unspecified; Z82.49 Family history of ischemic heart disease and other diseases of the circulatory system; Z91.14 Patient's other noncompliance with medication regimen
CPT/HCPCS: 36415; 36416; 70551; 80048; 80053; 80061; 83036; 83090; 84484; 85025; 90471; 90682; 90732; 93005; 93306; 93880; A4216; G0008; G0009; G8978-GP-CL; G8979-GP-CJ; G8987-GO-CJ; G8988-GO-CI; G8996-GN-CJ; G8997-GN-CI; J1650; J1815; Q2036; S0028